=== PATIENT | female | born 1990 | race Caucasian/White ===

== ENCOUNTER → 2017-06-17 | Outpatient (CLI) | payer OTHER ==
[~2017-06-17] MED LIST: NEXPLANON68 MG SUBQ
[2017-06-17 14:19] LABS: URINE APPEARANCE CLEAR; URINE BILIRUBIN NEG (NEG); URINE BLOOD NEG (NEG); URINE COLOR YELLOW; URINE GLUCOSE NEG (NEG); URINE KETONE NEG (NEG); URINE LEUKOCYTE ESTERASE NEG (NEG); URINE NITRATE NEG (NEG); URINE PH 5.5 (5-8); URINE PROTEIN NEG (NEG)
[2017-06-17 14:23] LABS: URINE SOURCE VOID
== END | disposition home or self-care (01) ==
LOC: CAMB 13:24
PROVIDERS: Surgery
DX: Z01.812 Encounter for preprocedural laboratory examination (principal); R22.1 Localized swelling, mass and lump, neck
CPT/HCPCS: 81003

== ENCOUNTER → 2017-06-21 | Day surgery (SDC) | payer OTHER ==
--- NOTE | ~2017-06-21 | OR ---
Unit #: [id number] #: [id number] Patient: MARISELA RUIZ [id number] [place], [place] [address] [id number] O MR#: [id number] NAME: MARISELA RUIZ ROOM: Date of Procedure: 06/21/2017 Admission Date: 06/21/2017 Surgeon: Giancarlo Eller Jr., M.D. : 1990 Attending Physician: Giancarlo Eller Jr., M.D. Primary Care Physician: Kalani Hickey A.P.R.N. OPERATIVE REPORT INDICATION FOR PROCEDURE The patient is a 27-year-old white female, recently was referred to the office complaining of an enlarging mass of the right neck. It has been there for some time and does cause some discomfort at times. She is brought in this time for excision of this under general anesthesia. She understands the procedure including the risks, including that of bleeding, infection, poor healing, nerve injury, and recurrence and consents. PREOPERATIVE DIAGNOSIS Mass of the right neck, etiology? POSTOPERATIVE DIAGNOSES Mass of the right neck, etiology?, noting a large lipomatous mass that extended down to the fascia of the sternocleidomastoid muscle. ANESTHESIA General with endotracheal intubation 0.5% Marcaine with epinephrine locally. PROCEDURE PERFORMED Excision of large mass of the right neck. DESCRIPTION OF PROCEDURE The patient was positioned in supine position and after being anesthetized and intubated, she was placed in position with her head turned to the left, prepped and draped in routine fashion for excision of the mass described above. An oblique incision was made over the mass approximately 3.5 inches in length after the area was locally blocked with 0.5% Marcaine with epinephrine. This was carried down through subcutaneous tissue with lipomatous fat being encountered circumferentially. The incision was carried down with Metzenbaum scissors and dissected down to the fascia of the muscle. It was then removed from the muscle with #10 blade scalpel. After it was removed, it was sent to Pathology. Hemostasis was achieved with Bovie cautery, and the deeper subcutaneous tissue approximated with interrupted 3-0 Vicryl sutures. Skin edges were approximated with stainless-steel skin clips and skin stapling device. Sterile compression dressing was applied externally. Estimated blood loss less than 50 mL. The patient received less than 1000 mL crystalloid solution during the procedure. Sponges and instrument counts were correct x3. No drains were used. No complications. The patient was taken to the recovery room with stable vital signs in satisfactory condition. Unit #: [id number] #: [id number] Patient: MARISELA RUIZ Dictated by... Giancarlo Eller Jr., MAlfredo AMBRIZ/franco TD: 06/21/2017 14:23 JOB #: [id number] CC: Kalani Hickey A.P.R.N. OPERATIVE REPORT Page 1 of 1 X Giancarlo Eller MD X PROCEDURE OPERATIVE NOTE
== END | disposition home or self-care (01) ==
LOC: CSUR 08:59
DX: D17.0 Benign lipomatous neoplasm of skin and subcutaneous tissue of head, face and neck (principal); M79.89 Other specified soft tissue disorders; K21.9 Gastro-esophageal reflux disease without esophagitis; E66.01 Morbid (severe) obesity due to excess calories; F17.210 Nicotine dependence, cigarettes, uncomplicated; Z68.44 Body mass index [BMI] 60.0-69.9, adult; Z79.899 Other long term (current) drug therapy; Z90.49 Acquired absence of other specified parts of digestive tract
CPT/HCPCS: 84703; 88304; J0330; J1885; J2250; J2405; J2710; J3010